=== PATIENT | male | born 1965 | race Caucasian/White ===

== ENCOUNTER 2016-12-11 20:35 | Emergency (ER) | payer SELFPAY ==
[~2016-12-11] VITALS: Ht 193 cm; Wt 94.6 kg
[2016-12-11] MEDS ORDERED: ASPIRIN 81 MG TABLET CHEW PO ONE (21:00)
[2016-12-11] MEDS ORDERED: PLEASE ENTER ALLERGIES MC SCH ×2 (21:00)
[2016-12-11 22:22] LABS: BLOOD UREA NITROGEN 17 mg/dL (7-18)
[2016-12-11 22:27] LABS: IS PT STATUS REG ER OR PRE ER? YES
[2016-12-11] MEDS ORDERED: ASPIRIN 81 MG TABLET CHEW ONE (23:22)
[2016-12-12 00:04] VITALS: BP 109/78
== END 2016-12-12 00:15 | disposition home or self-care (01) ==
LOC: ED 23:53
DX: J20.9 Acute bronchitis, unspecified (principal); K21.9 Gastro-esophageal reflux disease without esophagitis
CPT/HCPCS: 36415; 71020; 80048; 82040; 84484; 85025; 93005

== ENCOUNTER → 2019-08-27 | Outpatient (CLI) | payer MEDICAID | END | disposition home or self-care (01) | LOC: CVU 08:11 | PROVIDERS: ATTEND Surgery | DX: I82.422 Acute embolism and thrombosis of left iliac vein (principal); I82.432 Acute embolism and thrombosis of left popliteal vein; M76.812 Anterior tibial syndrome, left leg | CPT/HCPCS: 93971 ==